=== PATIENT | male | born 1970 | race Two or more races ===

== ENCOUNTER 2023-08-07 13:46 | Emergency (ER) | payer OTHER ==
[~2023-08-07] VITALS: Ht 167.6 cm; Wt 84.8 kg
[2023-08-07] MEDS ORDERED: GLYXAMBI 25 MG1 EACH PO (13:56)
[2023-08-07] MEDS ORDERED: AMLODIPINE-OLM1 EAC2 PO (13:58)
== END 2023-08-07 17:37 | disposition home or self-care (01) ==
LOC: ER 13:46
DX: S62.609A Fracture of unspecified phalanx of unspecified finger, initial encounter for closed fracture (principal); X58.XXXA Exposure to other specified factors, initial encounter; Y93.9 Activity, unspecified; Y92.9 Unspecified place or not applicable; Y99.9 Unspecified external cause status